=== PATIENT | female | born 1990 | race Caucasian/White ===

== ENCOUNTER 2020-02-08 16:39 | Emergency (ER) | payer OTHER ==
[~2020-02-08] VITALS: Ht 160 cm; Wt 62.0 kg
[2020-02-08 16:43] VITALS: BP 148/90
[2020-02-08] MEDS ORDERED: SERT50TA PO (17:07)
[2020-02-08] MEDS ORDERED: ONDA4TAB12 PO (17:07)
--- NOTE | 2020-02-08 17:08 | PHYS DOC ---
General Adult EDM: Chief Complaint: ANXIETY/PANIC ATTACK HPI: HPI: Patient is a 29-year-old G3, P3 with 3 young children at home with a history of depression who is been on Zoloft 50 mg to help manage her depression and anxiety. Patient states she did great on the medicine but was having a hard time losing her "baby weight". She is tried stopping the medication by moving down to 25 mg then taking it every other day now is been 3 days since she is taken it she feels nauseous she is tearful anxious crying all the time. She states she just moved here in August has no friends and no real support system. She also states her mother lives far away 72 years old and just had a big cancer surgery. Not to mention, she struggles with the every day duties of taking care of her children. She denies any suicidal or homicidal ideation. She does states she has been trying to eat better and exercise a little bit more. [] Review of Systems: Review of Systems: Constitutional: Denies fever or chills Eyes: Denies change in visual acuity HENT: Denies nasal congestion or sore throat Respiratory: Denies cough or shortness of breath Cardiovascular: Denies chest pain or edema GI: Denies abdominal pain, nausea, vomiting, bloody stools or diarrhea : Denies dysuria Musculoskeletal: Denies back pain or joint pain Integument: Denies rash Neurologic: Denies headache, focal weakness or sensory changes Endocrine: Denies polyuria or polydipsia Lymphatic: Denies swollen glands Psychiatric: Reports anxiety and depression Heart Score: Risk Factors: Risk Factors: DM, Current or recent (<one month) smoker, HTN, HLP, family history of CAD, obesity. Risk Scores: Score 0 - 3: 2.5% MACE over next 6 weeks - Discharge Home Score 4 - 6: 20.3% MACE over next 6 weeks - Admit for Clinical Observation Score 7 - 10: 72.7% MACE over next 6 weeks - Early Invasive Strategies Physical Exam: PE: Constitutional: Well developed, well nourished, no acute distress, non-toxic appearance. [] HENT: Normocephalic, atraumatic, bilateral external ears normal, oropharynx moist, no oral exudates, nose normal. [] Eyes: PERRLA, EOMI, conjunctiva normal, no discharge. [] Neck: Normal range of motion, no tenderness, supple, no stridor. [] Cardiovascular:Heart rate regular rhythm, no murmur [] Lungs & Thorax: Bilateral breath sounds clear to auscultation [] Abdomen: Bowel sounds normal, soft, no tenderness, no masses, no pulsatile masses. [] Skin: Warm, dry, no erythema, no rash. [] Back: No tenderness, no CVA tenderness. [] Extremities: No tenderness, no cyanosis, no clubbing, ROM intact, no edema. [] Neurologic: Alert and oriented X 3, normal motor function, normal sensory function, no focal deficits noted. [] Psychologic: Anxious tearful l. [] EKG: EKG: [] Radiology/Procedures: Radiology/Procedures: [] Course & Med Decision Making: Course & Med Decision Making Pertinent Labs and Imaging studies reviewed. (See chart for details) ED course: Evaluation reveals a 29-year-old female who quite obviously has anxiety and depression. I spent at least 15 minutes talking with the patient about getting back on her Zoloft at 50 mg being consistent taking her medication on a daily basis. We talked through a better diet and increasing the intensity of her exercise regimen. We both believe that this is in the patient's best interest at this time. I have encouraged her to follow with her primary care physician in the next week or so.] Alvarez Disclaimer: Alvarez Disclaimer: This electronic medical record was generated, in whole or in part, using a voice recognition dictation system. Departure Departure: Impression: Primary Impression: Depression affecting , Disposition: HOME/RESIDENCE PRIOR TO ADM Condition: STABLE Referrals: PCP,NO (PCP) Patient Instructions: Bupropion tablets (Depression/Mood Disorders), Depression and Baby Blues Additional Instructions: Return to the emergency department with any new or concerning symptoms Scripts Sertraline Hcl (ZOLOFT) 50 Mg Tablet 1 TAB PO DAILY for Depression, #90 TAB 2 Refills Prov: STEVEN DUNN DO 02/08/20 Ondansetron (ONDANSETRON ODT) 4 Mg Tab.rapdis 1 TAB PO PRN Q6-8HRS for NAUSEA, #16 TAB Prov: STEVEN DUNN DO 02/08/20 Justification of Admission: Justification of Admission: Justification of Admission Dx: No STEVEN DUNN DO Feb 08, 2020 17:07
== END 2020-02-08 17:11 | disposition home or self-care (01) ==
LOC: ER 16:39
DX: O99.345 Other mental disorders complicating the puerperium (principal); F53.0 Postpartum depression; F41.9 Anxiety disorder, unspecified
CPT/HCPCS: 99283

== ENCOUNTER 2021-04-07 12:19 | Emergency (ER) | payer OTHER ==
[~2021-04-07] VITALS: Ht 152.4 cm; Wt 66.1 kg
[~2021-04-07 12:19] MED LIST: ONDA4TAB12 PO; SERT50TA PO
[2021-04-07 12:41] VITALS: BP 140/65
--- NOTE | 2021-04-07 13:02 | PHYS DOC ---
Past History Past Medical History: Anxiety Past Surgical History: No Surgical History Alcohol Use: None General Adult EDM: Chief Complaint: SUICIDAL IDEATION HPI: HPI: Patient is a 31-year-old female who presents with SI. Patient states she "I am having some marital issues and I feel like I am being a bad mom". Patient denies having a plan. Patient denies SI attempts in the past but states she has thoughts of SI. Patient is a history of anxiety and depression. "I stopped t aking my depression medicine because it was making me gain too much weight". Denies HI. Review of Systems: Review of Systems: Constitutional: Denies fever or chills Eyes: Denies change in visual acuity HENT: Denies nasal congestion or sore throat Respiratory: Denies cough or shortness of breath Cardiovascular: Denies chest pain or edema GI: Denies abdominal pain, nausea, vomiting, bloody stools or diarrhea : Denies dysuria Musculoskeletal: Denies back pain or joint pain Integument: Denies rash Neurologic: Denies headache, focal weakness or sensory changes Endocrine: Denies polyuria or polydipsia Lymphatic: Denies swollen glands Psychiatric: Reports depression or anxiety Physical Exam: PE: Constitutional: Well developed, well nourished, no acute distress, non-toxic appearance. [] HENT: Normocephalic, atraumatic, bilateral external ears normal, oropharynx moist, no oral exudates, nose normal. [] Eyes: PERRLA, EOMI, conjunctiva normal, no discharge. [] Neck: Normal range of motion, no tenderness, supple, no stridor. [] Cardiovascular:Heart rate regular rhythm, no murmur [] Lungs & Thorax: Bilateral breath sounds clear to auscultation [] Abdomen: Bowel sounds normal, soft, no tenderness, no masses, no pulsatile masses. [] Skin: Warm, dry, no erythema, no rash. [] Back: No tenderness, no CVA tenderness. [] Extremities: No tenderness, no cyanosis, no clubbing, ROM intact, no edema. [] Neurologic: Alert and oriented X 3, normal motor function, normal sensory function, no focal deficits noted. [] Psychologic: Tearful, anxious, hopeless Current Patient Data: Vital Signs: Vital Signs Date Time Temp Pulse Resp B/P (MAP) Pulse Ox O2 Delivery O2 Flow Rate FiO2 8/12/21 12:41 98.7 18 140/65 98 EKG: EKG: [] Sinus rhythm. Heart rate [address] elevation or depression. Radiology/Procedures: Radiology/Procedures: [] Heart Score: C/O Chest Pain: No Risk Factors: Risk Factors: DM, Current or recent (<one month) smoker, HTN, HLP, family history of CAD, obesity. Risk Scores: Score 0 - 3: 2.5% MACE over next 6 weeks - Discharge Home Score 4 - 6: 20.3% MACE over next 6 weeks - Admit for Clinical Observation Score 7 - 10: 72.7% MACE over next 6 weeks - Early Invasive Strategies Course & Med Decision Making: Course & Med Decision Making Pertinent Labs and Imaging studies reviewed. (See chart for details) [] 31-year-old female who presents with SI. Patient states that she feels like she just does not want to be here anymore. Patient states that she is been having some marital issues and struggling with feeling like a bad mom. Patient states that she is just overwhelmed. Denies having a plan. Patient is very anxious and tearful. Patient states that she has been trying to find a counselor but ever were so expensive. She reports that she has been suicidal in the past but never attempted. Mark from PAT team consulted. All labs unremarkable. Tiki from PAT team spoke with patient. Safety plan was written and signed by patient and PAT team. Patient states that she wants to be back on antidepressants and wants to speak with someone from [facility]. Patient states that she feels much better after talking to us and will follow up with guidance Center for further recommendations and help. Patient denies SI at this time. Patient is hemodynamically stable upon discharge. Dragon Disclaimer: Alvarez Disclaimer: This electronic medical record was generated, in whole or in part, using a voice recognition dictation system. Departure Departure: Impression: Primary Impression: Depression Qualified Codes: F32.9 - Major depressive disorder, single episode, unspecified Disposition: HOME / SELF CARE / HOMELESS Condition: STABLE Referrals: PCP,NO (PCP) Patient Instructions: Depression, Adult, [place]ud[place], Suicidal Feelings, How to Help Yourself Additional Instructions: You were seen in the emergency room for suicidal ideation and depression. You spoke with someone from our PAT team. You signed a safety plan and have agreed to go to the guidance Center to speak to someone and get on antidepressants. Please return to the emergency room if you have worsening symptoms or concerns. Otherwise follow-up with your PCP for further management. EMERGENCY DEPARTMENT GENERAL DISCHARGE INSTRUCTIONS Thank you for coming to [facility] (ED) today and trusting us with you care. We trust that you had a positivie experience in our Emergency Department. If you wish to speak to the department management, you may call the director at [phone]. YOUR FOLLOW UP INSTRUCTIONS ARE FOLLOWS: 1. Do you have a private Doctor? If you do not have a private doctor, please ask for a resource list of physicians or clinics that may be able to assist you with follow up care. 2. The Emergency Physician has interpreted your x-rays. The X-Ray specialist will also review them. If there is a change in the findings, you will be notified in 48 hours when at all possible. 3. A lab test or culture has been done, your results will be reviewed and you will be notified if you need a change in treatment. ADDITIONAL INSTRUCTIONS AND INFORMATION: 1. Your care today has been supervised by a physician who is specially trained in emergency care. Many problems require more than one evaluation for a complete diagnosis and treatment. We recommend that you schedule your follow up appointment as recommended to ensure complete treatment of you illness or injury. If you are unable to obtain follow up care and continue to have a problem, or if your condition worsens, we recommend that you return to the ED. 2. We are not able to safely determine your condition over the phone nor are we able to give sound medical advice over the phone. For these safety reasons, if you call for medical advice we will ask you to come to the ED for further evaluation. 3. If you have any questions regarding these discharge instructions please call the ED at [phone]. SAFETY INFORMATION: In the interest of safety, wellness, and injury prevention; we encourage you to wear your sealbelt, if you smoke; quite smoking, and we encourage family to use a protective helmet for bicycling and other sporting events that present an increased risk for head injury. IF YOUR SYMPTOMS WORSEN OR NEW SYMPTOMS DEVELOP, OR YOU HAVE CONCERNS ABOUT YOUR CONDITION; OR IF YOUR CONDITION WORSENS WHILE YOU ARE WAITING FOR YOUR FOLLOW UP APPOINTMENT; EITHER CONTACT YOUR PRIMARY CARE DOCTOR, THE PHYSICIAN WHOSE NAME AND NUMBER YOU WERE GIVEN, OR RETURN TO THE ED IMMEDIATELY. JARVIS SHARMA APRN Apr 07, 2021 13:02
[2021-04-07 13:06] LABS: BASO % 1 % (0-3); EOS % 0 % (0-3); HEMATOCRIT 41.4 % (36.0-47.0); HEMOGLOBIN 14.5 g/dL (12.0-15.5); LYMPH % 15 % (24-48); MEAN CORPUSCULAR HEMOGLOBIN 32 pg (25-35); MEAN CORPUSCULAR HGB CONC 35 g/dL (31-37); MEAN CORPUSCULAR VOLUME 91 fL (79-100); MONO # 0.3 x10^3/uL (0.0-1.1); MONO % 4 % (0-9); NEUT # 5.3 x10^3uL (1.8-7.7); NEUT % 81 % (31-73); PLATELET COUNT 218 x10^3/uL (140-400); RED BLOOD COUNT 4.55 x10^6/uL (3.50-5.40); RED CELL DISTRIBUTION WIDTH 12.5 % (11.5-14.5); WHITE BLOOD COUNT 6.5 x10^3/uL (4.0-11.0)
[2021-04-07 13:15] LABS: CALCIUM 8.9 mg/dL (8.5-10.1); CREATININE 0.7 mg/dL (0.6-1.0); GFR 98.9; POTASSIUM 3.8 mmol/L (3.5-5.1)
--- NOTE | 2021-04-07 13:41 | EKG ---
[address] [address] Test Date: 2021-04-07 Test Time: 12:57:44 Pat Name: BARBARA MEYER Department: Room: Gender: F Shade Hanger: TAMANNA : 1990 Requested By: JARVIS SHARMA Order Number: [id number] Reading MD: Measurements Intervals [place] Rate: 79 P: 34 MN: 124 QRS: 0 QRSD: 82 T: 25 QT: 376 QTc: 432 Interpretive Statements SINUS RHYTHM LEFTWARD AXIS OTHERWISE NORMAL ECG RI6.02 No previous ECG available for comparison
== END 2021-04-07 16:44 | disposition home or self-care (01) ==
LOC: ER 12:19
DX: F32.9 Major depressive disorder, single episode, unspecified (principal); F41.9 Anxiety disorder, unspecified
CPT/HCPCS: 80048; 85025; 93005; 99284